=== PATIENT | female | born 1935 | race Caucasian/White ===

== ENCOUNTER → 2018-10-24 | Outpatient (CLI) | payer OTHER | LOC: HYPER 10-22 12:15 | DX: L03.115 Cellulitis of right lower limb (principal); L03.116 Cellulitis of left lower limb; S90.522A Blister (nonthermal), left ankle, initial encounter; S90.822A Blister (nonthermal), left foot, initial encounter; L20.89 Other atopic dermatitis; E03.9 Hypothyroidism, unspecified; E78.5 Hyperlipidemia, unspecified; I10 Essential (primary) hypertension; I77.89 Other specified disorders of arteries and arterioles; M81.0 Age-related osteoporosis without current pathological fracture; Z87.891 Personal history of nicotine dependence; Z97.4 Presence of external hearing-aid; Z96.649 Presence of unspecified artificial hip joint; Z98.41 Cataract extraction status, right eye; X58.XXXA Exposure to other specified factors, initial encounter; Y93.89 Activity, other specified; Y92.89 Other specified places as the place of occurrence of the external cause; Y99.8 Other external cause status ==

== ENCOUNTER → 2018-11-07 | Outpatient (CLI) | payer OTHER | LOC: HYPER 06:35 | DX: S90.522D Blister (nonthermal), left ankle, subsequent encounter (principal); L03.115 Cellulitis of right lower limb; L03.116 Cellulitis of left lower limb; L20.89 Other atopic dermatitis; E03.9 Hypothyroidism, unspecified; I10 Essential (primary) hypertension; M81.0 Age-related osteoporosis without current pathological fracture; E78.5 Hyperlipidemia, unspecified; I77.9 Disorder of arteries and arterioles, unspecified; R53.1 Weakness; R41.3 Other amnesia; Z87.891 Personal history of nicotine dependence; Z97.4 Presence of external hearing-aid; Z91.81 History of falling; X58.XXXD Exposure to other specified factors, subsequent encounter ==

== ENCOUNTER → 2018-11-21 | Outpatient (CLI) | payer OTHER | LOC: HYPER 06:40 | DX: S90.522D Blister (nonthermal), left ankle, subsequent encounter (principal); L03.115 Cellulitis of right lower limb; S90.821D Blister (nonthermal), right foot, subsequent encounter; L03.116 Cellulitis of left lower limb; L20.89 Other atopic dermatitis; E78.5 Hyperlipidemia, unspecified; I10 Essential (primary) hypertension; E03.9 Hypothyroidism, unspecified; M81.0 Age-related osteoporosis without current pathological fracture; I77.9 Disorder of arteries and arterioles, unspecified; R41.3 Other amnesia; R21 Rash and other nonspecific skin eruption; R53.1 Weakness; Z87.891 Personal history of nicotine dependence; Z79.4 Long term (current) use of insulin; Z91.81 History of falling; X58.XXXD Exposure to other specified factors, subsequent encounter ==

== ENCOUNTER → 2018-12-04 | Outpatient (CLI) | payer OTHER | LOC: HYPER 08:33 | DX: S80.822D Blister (nonthermal), left lower leg, subsequent encounter (principal); S80.812D Abrasion, left lower leg, subsequent encounter; S90.821D Blister (nonthermal), right foot, subsequent encounter; S90.822D Blister (nonthermal), left foot, subsequent encounter; L20.89 Other atopic dermatitis; I77.9 Disorder of arteries and arterioles, unspecified; I10 Essential (primary) hypertension; E78.5 Hyperlipidemia, unspecified; M81.0 Age-related osteoporosis without current pathological fracture; E03.9 Hypothyroidism, unspecified; R21 Rash and other nonspecific skin eruption; Z87.891 Personal history of nicotine dependence; Z91.81 History of falling; X58.XXXD Exposure to other specified factors, subsequent encounter ==

== ENCOUNTER → 2018-12-18 | Outpatient (CLI) | payer OTHER | LOC: HYPER 07:01 | DX: S80.822D Blister (nonthermal), left lower leg, subsequent encounter (principal); S90.821D Blister (nonthermal), right foot, subsequent encounter; L20.89 Other atopic dermatitis; E03.9 Hypothyroidism, unspecified; I10 Essential (primary) hypertension; M81.0 Age-related osteoporosis without current pathological fracture; I77.9 Disorder of arteries and arterioles, unspecified; E78.5 Hyperlipidemia, unspecified; R41.3 Other amnesia; R21 Rash and other nonspecific skin eruption; R53.1 Weakness; Z97.4 Presence of external hearing-aid; Z91.81 History of falling; Z87.891 Personal history of nicotine dependence; X58.XXXD Exposure to other specified factors, subsequent encounter ==